=== PATIENT | male | born 2000 | race Caucasian/White ===

== ENCOUNTER 2023-12-02 08:10 | Emergency (ER) | payer BC, SELFPAY ==
[2023-12-02 08:14] VITALS: BP 143/75; PULSE 90; RESP 16; TEMP 36.7; O2SAT 98
[2023-12-02 09:20] VITALS: BP 135/74; PULSE 94; RESP 20; O2SAT 98
--- NOTE | 2023-12-02 09:25 | ED.GENADULT ---
HPI - General Adult General Chief complaint: Unspecified Stated complaint: possible bat exposure on 11/16 Time Seen by Provider: 12/02/23 08:55 Source: patient Mode of arrival: ambulatory Limitations: no limitations History of Present Illness HPI narrative: Patient is a 23 y/o male who presents to the ED with c/o possible bat exposure. Patient reports he was hiking on 11/17/23 in an area where he saw bats flying overhead. He states something brushed him on the back of his neck, but he is unsure what. He never physically saw a bat. He denied having any bite guzmán to the back of his neck. He has been asymptomatic since then, but c/o neck stiffness this morning which prompted his presentation. He is unsure if she slept wrong. Denies fevers, numbness. Related Data Home Medications Medication Instructions Recorded Confirmed No Home Medications 12/02/23 12/02/23 Allergies Allergy/AdvReac Type Severity Reaction Status Date / Time No Known Allergies Allergy Verified 12/02/23 08:18 Review of Systems Review of Systems: CONSTITUTIONAL: Denies fever, chills, or sweats. MUSCULOSKELETAL: See HPI NEUROLOGIC: Denies headache, dizziness, numbness, or weakness. All systems reviewed & are unremarkable except as noted in HPI and below Exam Narrative: GENERAL: Well appearing, well-nourished, non-toxic, in no acute distress. HEAD: Normocephalic, atraumatic. NECK: Minimal tenderness in yohana paraspinal musculature. No midline spinal tenderness. Skin is intact, no visible wounds, erythema, bite guzmán, abrasions. RESPIRATORY: Airway patent, respirations nonlabored. CARDIOVASCULAR: Regular rate and rhythm MUSCULOSKELETAL: Moves all extremities. No gross deformities. SKIN: Warm, dry, normal color. NEURO: A&O X3. Speech clear. Cranial nerves II-XII grossly intact. Steady gait. No ataxic movements. PSYCHIATRIC: Appropriate mood and affect. Normal interaction. Course Vital Signs Vital signs: Vital Signs Temperature 98.1 F 12/02/23 08:14 Pulse Rate 90 12/02/23 08:14 Respiratory Rate 16 12/02/23 08:14 Blood Pressure 143/75 H 12/02/23 08:14 Pulse Oximetry 98 12/02/23 08:14 Oxygen Delivery Room Air 12/02/23 08:14 Temperature 98.1 F 12/02/23 08:14 Pulse Rate 74 12/02/23 10:36 Respiratory Rate 20 12/02/23 10:36 Blood Pressure 121/66 12/02/23 10:36 Pulse Oximetry 98 12/02/23 10:36 Oxygen Delivery Room Air 12/02/23 08:14 Medical Decision Making MDM Narrative Medical decision making narrative: Patient presented to ED with concern for possible bat exposure 2 weeks ago while hiking. VSS upon arrival. Skin is unremarkable on exam today, no evidence of bite guzmán or visible injury. Discussed case with Darleen Howard, Infection Control, who spoke to local and [facility] health departments. Dr. Starr with [facility] department, advised if object felt heavy enough and solid, could have been a bat - recommended treating. Otherwise forego treatment. Discussed this with patient. He does wish to proceed with rabies prophylaxis. Given rabies vaccine and immunoglobulin in the ED. Infection control updated on plan and need for follow-up. Patient in agreement with plan. Given return precautions. Medical Records Medical records reviewed: Yes I reviewed the external patient's medical records. Vital Signs Vital Signs: Vital Signs Temperature 98.1 F 12/02/23 08:14 Pulse Rate 90 12/02/23 08:14 Respiratory Rate 16 12/02/23 08:14 Blood Pressure 143/75 H 12/02/23 08:14 Pulse Oximetry 98 12/02/23 08:14 Oxygen Delivery Room Air 12/02/23 08:14 Temperature 98.1 F 12/02/23 08:14 Pulse Rate 74 12/02/23 10:36 Respiratory Rate 20 12/02/23 10:36 Blood Pressure 121/66 12/02/23 10:36 Pulse Oximetry 98 12/02/23 10:36 Oxygen Delivery Room Air 12/02/23 08:14 Discharge Plan Discharge Clinical Impression: Exposure to bat without known bite, Rabies, need for prophylactic vacci
[2023-12-02] MEDS: RABIES VACCINE (RABAVERT) 2.5 UNITS VIAL IM (10:19)
[2023-12-02] MEDS: RABIES IMMUNE GLOBULIN/PF 1,500 UNITS/5 ML VIAL 1500 UNITS IM (10:25)
[2023-12-02 10:36] VITALS: BP 121/66; PULSE 74; RESP 20; O2SAT 98
== END 2023-12-02 10:37 | disposition home or self-care (01) ==
PROVIDERS: Emergency Provider Physician Assistant; PCP Student in an Organized Health Care Education/Training Program
DX: Z20.3 Contact with and (suspected) exposure to rabies (principal); Z23 Encounter for immunization
CPT/HCPCS: 90471; 90675; 96372; 99283; 90375

== ENCOUNTER 2023-12-16 08:03 | Outpatient (RCR) | payer BC, SELFPAY ==
--- NOTE | 2023-12-05 12:04 | PC.NURSE ---
AMBULATORY TO LAB DRAW STATION WITH STEADY GAIT. STATES STILL HAS A BIT OF A STIFF NECK. STATES HAD BODY ACHES DAY OF ED VISIT INTO THE EVENING BUT RESOLVED BY NEXT MORNING. STATES HAS HAD INTERMITANT NAUSEA BUT DENIES DIARRHEA ET VOMITING. NO COMPLAINTS OF HEADACHE. 'TO RETURN SATURDAY, DECEMBER 09, 2023 FOR NEXT INJECTION. VOICES UNDERSTANDING. HAS NUMBER TO CALL FOR QUESTIONS OR CONCERNS. DISCHARGED AMBULATORY WITH STEADY GAIT.
--- NOTE | 2023-12-09 14:07 | PC.NURSE ---
AMBULATORY TO DRAW STATION FOR 3RD RABIES VACCINE. STATES FELT VERY TIRED FOR SEVERAL DAYS AFTER THE LAST VACCINE BUT FEELING BETTER TODAY. DENIES RASH, NAUSEA, VOMITING, DIARRHEA, AND BODY ACHES. HAS APPOINTMENT FOR 1 WEEK FROM TODAY AT 0800. HAS BUSINESS CARD AND NUMBER TO CALL FOR QUESTIONS / CONCERNS. AMBULATORY WITH STEADY GAIT TO ENTRANCE.
--- NOTE | 2023-12-16 12:32 | PC.NURSE ---
AMBULATORY TO LAB DRAW STATION FOR 4TH / LAST RABIES VACCINE. DENIES SYMPTOMS OF REACTION. STATES HAS FELT PRETTY GOOD SINCE LAST INJECTION. GIVEN 4TH VACCINE IN SERIES. DISCUSSED FUTURE RABIES VACCINE SHOULD HE HAVE ANOTHER EXPOSURE. DISCHARGED AMBULATORY WITH STEADY GAIT.
== END 2024-03-04 23:59 | disposition home or self-care (01) ==
LOC: ANHVASCINF 08:03
PROVIDERS: PCP Student in an Organized Health Care Education/Training Program; Visit Provider Physician Assistant
DX: Z20.3 Contact with and (suspected) exposure to rabies (principal); Z29.14 Encounter for prophylactic rabies immune globulin
CPT/HCPCS: 90471; 90675